=== PATIENT | male | born 1990 | race Two or more races ===

== ENCOUNTER 2021-06-17 03:11 | Emergency (ER) | payer OTHER ==
[~2021-06-17] VITALS: Ht 190.5 cm; Wt 86.2 kg
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
--- NOTE | 2021-06-17 03:32 | NUR ---
PT TAKEN FOR CT SCAN
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
--- NOTE | 2021-06-17 04:17 | NUR ---
Patient discharged to home in stable condition. Written and verbal after care instructions given. Patient verbalizes understanding of instruction.
[2021-06-17 04:22] VITALS: BP 141/74
== END 2021-06-17 04:23 | disposition home or self-care (01) ==
LOC: ER 03:22
DX: S09.90XA Unspecified injury of head, initial encounter (principal); Z60.2 Problems related to living alone; Y04.2XXA Assault by strike against or bumped into by another person, initial encounter; Y93.89 Activity, other specified; Y92.89 Other specified places as the place of occurrence of the external cause; Y99.8 Other external cause status
CPT/HCPCS: 70450-TC; 72125-TC